=== PATIENT | male | born 1990 | race Two or more races ===

== ENCOUNTER 2020-09-18 18:54 | Emergency (ER) | payer OTHER ==
[~2020-09-18] VITALS: Ht 167.6 cm; Wt 77.1 kg
== END 2020-09-18 21:21 | disposition home or self-care (01) ==
LOC: ER 18:54
DX: R06.02 Shortness of breath (principal); R05 Cough; J02.9 Acute pharyngitis, unspecified; J06.9 Acute upper respiratory infection, unspecified

== ENCOUNTER 2022-12-12 14:05 | Emergency (ER) | payer OTHER ==
[~2022-12-12] VITALS: Ht 167.6 cm; Wt 79.4 kg
[2022-12-12] MEDS ORDERED: OSEL75CA PO (16:21)
== END 2022-12-12 16:29 | disposition home or self-care (01) ==
LOC: ER 14:05
DX: J10.1 Influenza due to other identified influenza virus with other respiratory manifestations (principal); B34.9 Viral infection, unspecified; Z20.822 Contact with and (suspected) exposure to COVID-19; Z88.5 Allergy status to narcotic agent; Z88.6 Allergy status to analgesic agent